=== PATIENT | female | born 1950 | race Caucasian/White ===

== ENCOUNTER → 2016-05-16 10:43 | Outpatient (CLI) | payer MEDICARE, OTHER ==
[2015-06-02 06:26] VITALS: BMI 29.1
[~2016-05-16 10:43] MED LIST: BACTROBAN CREAM15 GM TOPICAL; BUMEX2 MG PO; BUTALB-APAP-CA1 EACH PO; COZAAR50 MG PO; CYMBALTA30 MG PO; GABAPENTIN100 MG PO; K-DUR20 MEQ PO; LIPITOR20 MG PO; LOPRESSOR25 MG PO; NASONEX NASAL S17 GM NS; NEXIUM40 MG PO; PRILOSEC20 MG PO; SYNTHROID125 MCG PO; ZANAFLEX4 MG PO; [UNRECOGNIZED DRUG - OTHER] VG
== END | disposition home or self-care (01) ==
LOC: D.CT 10:43
DX: D12.0 Benign neoplasm of cecum (principal); K57.90 Diverticulosis of intestine, part unspecified, without perforation or abscess without bleeding

== ENCOUNTER 2017-07-04 00:06 | Observation (INO) | payer MEDICARE, OTHER ==
[~2017-07-04] VITALS: Ht 167.6 cm; Wt 86.2 kg
--- NOTE | ~2017-07-04 | EC ---
PATIENT:ANABELL DAMON DATE OF SERVICE: 07/04/17 SEX: F MEDICAL RECORD: [id number] DATE OF : 48 [facility] AGE OF PATIENT: 67 ADMISSION DATE: 07/04/17 REFERRING PHYSICIAN: INTERPRETING PHYSICIAN: JENNA HILL MD ECHOCARDIOGRAM REPORT ECHO CHARGES 4 ECHO COMPLETE CLINICAL DIAGNOSIS: SYNCOPE ECHOCARDIOGRAPHIC MEASUREMENTS (adult normal given) AC root (d.<3.7cm) 2.8 cm LV Septum d (<1.2 cm> 1.6 cm Valve Excursion 1.3 cm LV Septum (systole) 2.2 cm Left Atria (s.<4.0cm> 3.4 cm LVPW d(<1.2cm) 1.4 cm RV (d.<2.3cm) 2.2 cm LVPW (sytole) 2.3 cm LV diastole(<5.6CM) 4.4 cm MV E-F(>70mm/sec) cm LV systole 2.0 cm LVOT Diameter 1.4 cm MV exc.(>10mm) cm Est.ejection fraction (50-75%) % Pericardial Effusion N DOPPLER: LVIT cm/sec A 156 cm/sec E 115 cm/sec LA cm/sec RVSP 48.4 mmHg LVOT 138 cm/sec AOP1/2T m/s Asc. 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 Hill TAPE# PACS DATE OF SERVICE: 07/04/2017 PROCEDURE: Transthoracic echocardiogram. FINDINGS: 1. The left ventricle is shown to have mmkc-np-varffsnt left ventricular hypertrophy, ejection fraction is hyperdynamic. The ejection fraction is in the 70-75% range. 2. The right ventricle is mildly dilated with right ventricular hypertrophy with normal function. ECHOCARDIOGRAM REPORT [id number] ANABELL DAMON 3. The aortic valve is normal. 4. The mitral valve is normal. 5. The tricuspid valve is normal with an RVSP of 48 mmHg. 6. The pericardium is normal. 7. The right-sided structures are normal. CONCLUSIONS: The patient has evidence of mild hypertensive heart disease, also has evidence of yunj-ny-gknqvctt pulmonary hypertension with dilatation of the right-sided structures. TRANSINT:[id number] Voice Confirmation ID: [id number] DOCUMENT ID: [id number] 07/10/2017 Edited to correct date of service, dmm. JENNA HILL MD at 1001 CC: [id number] DICTATION DATE: 07/05/17 0751 CONTACT LENS BLOCKER AND CUTTER: 07/05/17 1004 DIS IN 07/05/17 [place] [id number] [place] [id number]
--- NOTE | ~2017-07-04 | HEMODYNAMI ---
PATIENT:ANABELL DAMON MEDICAL RECORD: [id number] : 48 LOCATION:[facility]13 ADMISSION DATE: 07/04/17 Generatedon:07/05/20178:30 Patient name: ANABELL DAMON Patient #: [id number] SSN: : 1950 Date of study: 07/05/2017 Page: Of Hemodynamic Procedure Report Patient Data Patient Demographics Procedure consent was obtained First Name: ANABELL Gender: Female Last Name: NELSON : 1950 Patient #: [id number] Age: 67 year(s) Race: Unknown Additional ID: [id number] Contact details [address]: [address] [place] [address] State: [place] City: [place] Zip code: [address] Past Medical History Allergies Allergen Reaction Date Comments Reported Other allergy 07/05/2017 [facility] Admission Admission Data Admission Date: 07/04/2017 Admission Time: 2:43 Room #: .2213 Procedure Procedure Types Cath Procedure Diagnostic Procedure C LH w/Coronaries Peripheral Cath Diagnostic Procedure Cath Peripheral Four Vessel Arteriogram Procedure Description Procedure Date Procedure Date: 07/05/2017 Procedure Start Time: 8:01 Procedure End Time: 8:30 Procedure Staff Name Function Fabio Markham MD Performing Physician Zakiya Cutler RT Monitor Jamel Hager RN Nurse Mecca Argueta RT Scrub Procedure Data Cath Procedure Fluoroscopy Diagnostic fluoroscopy Total fluoroscopy Time: 5.8 time: 5.8 min min Diagnostic fluoroscopy Total fluoroscopy dose: 522 dose: 522 mGy mGy Contrast Material Contrast Material Type Amount (ml) Isovue 300 108 Entry Location Entry Primary Successful Side Size Upsize Upsize Entry Closure Succes sful Closure Location (Fr) 1 (Fr) 2 (Fr) Remarks Device Remarks Femoral Right 5 Fr Exoseal artery Estimated blood loss: 5 ml Diagnostic catheters Device Type Used For End Catheter Placement MULTIPACK JL 4.0 5Fr Left Coronary catheter Angiography MULTIPACK 3DRC 5Fr Right Coronary catheter Angiography MULTIPACK Pigtail 5 Fr LV Angiography catheter DIAGNOSTIC IM 5Fr Cervical carotid catheter ([id number]) (common) arteriography DIAGNOSTIC JB3 4Fr Cervical carotid catheter (586131) (common) arteriography Procedure Complications No complications Procedure Medications Medication Administration Route Dosage 0.9% NaCl I.V. 100 ml/hr Oxygen NC 2 l/min Heparin Flush Bag added to field 2 bags (1000units/500ml NS) Lidocaine 2% added to field 20 Versed I.V. 1 mg Fentanyl I.V. 50 mcg Versed I.V. 0.5 mg Hemodynamics Rest Heart Rate: 70 (bpm) Pressure Samples Time Site Value (mmHg) Purpose Heart Use Rate(bpm) 8:15 LV 139/0,17 EDP 60 8:16 AO 141/59(88) Pullback 70 8:16 LV 144/2,18 Pullback 70 Gradients Valve Time Site 1 Site 2 Mean SEP/DFP Peak To Heart Use (mmHg) (sec/min) Peak Rate (mmHg) (bpm) Aortic 8:16 LV AO 12 15 3 70 144/2,18 141/59(88) Calculations Valve P-P Mean Valve Index Valve Source Name Gradient Area Flow (cm2) Aortic 3 12 3 12 Snapshots Pre Cath Intra NCS Post Cath Vital Signs Time Heart Resp SPO2 etCO2 NIBP (mmHg) Rhythm Pain Sedation Rate (ipm) (%) (mmHg) Status Level (bpm) 7:49:45 71 19 95 0 169/72(130) NSR 0 (11) 10(A) , No pain 7:54:30 67 16 98 27.9 145/57(96) NSR 0 (11) 10(A) , No pain 7:59:14 65 15 97 41.5 141/60(108) NSR 0 (11) 10(A) , No pain 8:03:55 67 15 95 0 121/70(89) NSR 0 (11) 10(A) , No pain 8:08:37 66 14 97 18.8 123/59(84) NSR 0 (11) 9(A) , No pain 8:13:20 70 13 97 0 136/67(102) NSR 0 (11) 9(A) , No pain 8:18:05 69 13 97 10.5 131/61(100) NSR 0 (11) 9(A) , No pain 8:22:48 69 14 97 9.8 124/58(89) NSR 0 (11) 10(A) , No pain 8:27:30 69 14 96 22.6 131/62(91) NSR 0 (11) 10(A) , No pain Medications Time Medication Route Dose Verified Delivered Reason Notes Effec tiveness by by 7:54:35 0.9% NaCl I.V. 100 Jamel Jamel Per ml/hr Madan Hager physician RN RN 7:54:49 Oxygen NC 2 Jamel Jamel Per l/min Lorigan Lorigan physician RN RN 7:55:19 Heparin Flush added 2 Jamel Jamel used for Bag to bags Lorigan Lorigan procedure (1000units/500ml field RN RN NS) 7:55:36 Lidocaine 2% added 20ml Jamel Jamel for local to vial Lorigan Lorigan anesthetic field RN RN 7:56:11 Versed I.V. 1 mg Jamel Jamel for Lorigan Lorigan sedation RN RN 7:56:24 Fentanyl I.V. 50 Jamel Jamel for mcg Lorigan Lorigan sedation RN RN 8:03:09 Versed I.V. 0.5 Jamel Jamel for mg Lorigan Lorigan sedation RN grades 7 8 tutor Log Time Note 7:27:47 Zakiya Counts RT(R) sent for patient. Start room use. 7:27:47 Time tracking: Regular hours 7:27:51 Plan of Care:Hemodynamics will remain stable., Cardiac rhythm will remain stable., Comfort level will be maintained., Respiratory function will remain adequate., Patient/ family verbilizes understanding of procedure., Procedure tolerated without complication., Recovers from procedure without complications.. 7:48:32 Patient received from Med/Surg to CCL 1 Alert and oriented. Tansferred to table in Supine position. 7:48:33 Warm blankets applied, and farshad hugger turned on for patient comfort. 7:48:34 Correct patient and procedure confirmed by team. 7:48:35 Signed procedure consent form obtained from patient. 7:48:36 ECG and BP/O2 sat monitors applied to patient. 7:48:37 Full Disclosure recording started 7:48:44 Vital chart was started 7:48:48 Rhythm: sinus rhythm 7:49:02 H&P Date Dictated: 07/04/2017 Within 30 days and on chart.. 7:49:03 Pre-procedure instructions explained to patient. 7:49:04 Pre-op teaching completed and patient verbalized understanding. 7:49:05 Family in waiting room. 7:49:07 Patient NPO since Midnight. 7:53:03 Baseline sample Acquired. 7:53:21 Patient allergic to Other allergyarithromycin 7:53:24 Is the patient allergic to Iodine/contrast media? No. 7:53:27 Is patient on blood thinner?No 7:53:28 Patient diabetic? Yes. 7:53:29 If diabetic: On Metformin? No 7:53:40 Previous problem with sedation/anesthesia? No ? 7:53:41 Snore? Yes 7:53:42 Sleep apnea? No 7:53:43 Deviated septum? No 7:53:43 Opens mouth fully? Yes 7:53:44 Sticks out tongue? Yes 7:53:52 Airway obstruction? Yes Reactive Airway 7:53:54 Dentures? No ? 7:53:57 Pre procedure: right dorsailis pedis pulse 2+ Normal; easily identifiable; not easily obliterated 7:53:59 Modified Sabino's test Ulnar > 7 seconds. 7:54:11 FAILED SABINO'S 7:54:14 Patient pain scale 0/10 ?. 7:54:21 IV patent on arrival in left forearm with 0.9% NaCl at [facility]. 7:54:25 Lab results completed and on chart. 7:54:28 Right groin area was prepped with chlora-prep and draped in sterile fashion 7:54:29 Alarms reviewed by R. N. 7:54:30 Sharps counted by scrub and verified by R.N. 7:54:35 0.9% NaCl 100 ml/hr I.V. was administered by Jamel Hager RN; Per physician; 7:54:38 Use device set Femoral Dx 7:54:39 ACIST Syringe (60074) opened to sterile field. 7:54:39 Bag Decanter (2002S) opened to sterile field. 7:54:40 Medline Cath Pack ([id number]) opened to sterile field. 7:54:40 SHEATH 5FR [place] (VOG846) opened to sterile field. 7:54:41 DIAGNOSTIC WIRE .035 260cm J wire (537441) opened to sterile field. 7:54:42 ACIST Hand Control (21635) opened to sterile field. 7:54:43 ACIST Manifold (15134) opened to sterile field. 7:54:43 DIAGNOSTIC Multipack 5Fr catheter set (MC0255) opened to sterile field. 7:54:44 Tegaderm 4 x 4 (1626W) opened to sterile field. 7:54:45 PERCUTANEOUS ENTRY 19GA needle opened to sterile field. 7:54:49 Oxygen 2 l/min NC was administered by Jamel Hager RN; Per physician; 7:55:19 Heparin Flush Bag (1000units/500ml NS) 2 bags added to field was administered by Jamle Hager RN; used for procedure; 7:55:27 Final Timeout: patient, procedure, and site verified with staff and physician. All members of the team are in agreement. 7:55:29 Right groin site verified by team. 7:55:33 Physical assessment completed. ASA score P 2 - A patient with mild systemic disease as per Fabio Markham MD. 7:55:36 Lidocaine 2% 20ml vial added to field was administered by Jamel Hager RN; for local anesthetic; 7:55:37 Sedation plan: IV Moderate Sedation Medication:Versed, Fentanyl 7:56:11 Versed 1 mg I.V. was administered by Jamel Hager RN; for sedation; 7:56:24 Fentanyl 50 mcg I.V. was administered by Jamel aHger RN; for sedation; 7:58:41 Zero performed for pressure channel P1 8:00:36 Procedure started. 8:01:05 Local anesthetic to right femoral artery with Lidocaine 2% by Fabio Markham MD.INITIAL ACCESS ONLY 8:03:09 Versed 0.5 mg I.V. was administered by Jamel Hager RN; for sedation; 8:08:49 A 5 Fr sheath was inserted into the Right Femoral artery 8:08:57 A MULTIPACK JL 4.0 5Fr catheter was advanced over the wire and used for Left Coronary Angiography. 8:09:17 Procedure type changed to Cath procedure, Diagnostic procedure, LHC, LHC w/Coronaries, Peripheral Cath Diagnostic Procedure, Cath Peripheral, Four Vessel Arteriogram 8:11:21 Catheter removed. 8:12:32 A MULTIPACK 3DRC 5Fr catheter was advanced over the wire and used for Right Coronary Angiography. 8:13:50 Catheter removed. 8:14:23 A MULTIPACK Pigtail 5 Fr catheter was advanced over the wire and used for LV Angiography. 8:15:41 LV gram done using ANGLIN 8:15:42 LV hemodynamics recorded. 8:15:45 Injector settings: Ml/sec: 10, Volume: 20, 8:15:49 EF : 60 % 8:16:10 Catheter removed. 8:16:46 A DIAGNOSTIC IM 5Fr catheter ([id number]) was advanced over the wire and used for Cervical carotid (common) arteriography.RIGHT 8:21:56 Catheter removed. 8:22:13 A DIAGNOSTIC JB3 4Fr catheter ([id number]) was advanced over the wire and used for Cervical carotid (common) arteriography.LEFT 8:24:25 Catheter removed. 8:24:29 EXOSEAL 5Fr (EX500) opened to sterile field. 8:25:06 Sheath removed intact; hemostasis achieved with Exoseal to the Right Femoral artery. 8:25:09 Procedure ended.(Physican Out) 8:25:18 Fluoroscopy time 05.80 minutes. 8:25:21 Fluoroscopy dose: 522 mGy 8:25:21 Flurop Dose total: 522 8:25:36 Contrast amount:Isovue 300 108ml. 8:25:41 Sharps counted by scrub and verified by R.N. 8:25:42 Insertion/operative site no bleeding no hematoma. 8:25:45 Post-op/insertion site Right Femoral artery dressed using a 4 x 4 and Tegaderm. 8:25:56 Post right femoral artery:stable, clean and dry 8:25:58 Post Procedure Pulses reassessed and unchanged 8:26:07 Post-procedure physical assessment completed. ASA score P 2 - A patient with mild systemic disease as per Fabio Markham MD. 8:26:09 Post procedure rhythm: unchanged. 8:26:12 Estimated blood loss: 5 ml 8:26:13 Post procedure instruction explained to patient.Patient verbalizes understanding. 8:26:14 Patient needs reinforcement of post procedure teaching. 8:26:19 Procedure Complication : No complications 8:26:21 See physician's report for complete and final results. 8:29:26 Procedure and supply charges have been captured, reviewed, submitted and are correct. 8:30:21 Vital chart was stopped 8:30:23 Report given to Pre/Post Procedure Room. 8:30:25 Patient transfered to Pre/Post Procedure Room with Stretcher. 8:30:36 Procedure ended. 8:30:36 Full Disclosure recording stopped 8:30:39 End room use (Document Last) Device Usage Item Name Manufacture Quantity Catalog Hospital Part Current Minimal Lot# / Number Charge Number Stock Stock Serial# Code ACIST Acist 1 47596 973439 989881 498803 20 Syringe Medical (94407) Systems Inc Bag Decanter Microtek 1 2001S 081136 51272 910793 5 (2001S) Medical Inc. Medline Cath Cardinal 1 [id number] 037871 14199 952772 5 Pack Health ([id number]) SHEATH 5FR Terumo 1 BWC981 269510 311801 563995 40 [place] (WCU480) DIAGNOSTIC [facility] [place] 1 659063 964456 360935 636150 30 WIRE .035 260cm J wire (805401) ACIST Hand Acist 1 69138 892850 074292 224272 5 Control Medical (48285) Systems Inc ACIST Acist 1 96688 941783 522638 688608 5 Manifold Medical (63118) Systems Inc DIAGNOSTIC Cardinal 1 YL8613 093443 02331 064717 30 Multipack Health 5Fr catheter set (EC2763) Tegaderm 4 x 3M 1 1626W 774830 254372 654803 5 4 (1626W) PERCUTANEOUS [facility] 1 H77130 092101 570167 5 ENTRY 19GA needle MULTIPACK JL Cardinal 1 208871 5 4.0 5Fr Health catheter MULTIPACK Cardinal 1 284106 5 3DRC 5Fr Health catheter MULTIPACK Cardinal 1 860650 5 Pigtail 5 Fr Health catheter DIAGNOSTIC Cardinal 1 [id number] 239557 903934 324653 5 IM 5Fr Health catheter (982278N) DIAGNOSTIC Cardinal 1 532438 202565 866724 960233 5 JB3 4Fr Health catheter (868669) EXOSEAL 5Fr Cardinal 1 EX500 605043 095018 057767 10 (EX500) Health Signature Audit [place] Stage Time Signature Unsigned Intra-Procedure 07/05/2017 Zakiya 8:30:52 AM Counts RT(R) Signatures Monitor : Zakiya Signature : Counts RT Date : Time : [address] [place] [address]
[2017-07-04 01:15] LABS: BASOPHILS 0.7 % (0-2); EOSINOPHILS 2.9 % (0-7); HEMATOCRIT 38.4 % (36.0-48.0); HEMOGLOBIN 12.7 g/dL (12-16); IMMATURE GRANULOCYTES 0.2 % (0-5); LYMPHOCYTES 34.2 % (15-50); MCHC 33.1 g/dL (31.0-37.0); MCV 96.7 fL (80.0-100.0); MEAN PLATELET VOLUME 10.2 fL (7.4-10.4); MONOCYTES 7.2 % (2-11); NEUTROPHILS 54.8 % (40-80); PLATELET COUNT 290 10x3/uL (130-400); RBC 3.97 10x6/uL (4.00-5.40); RDW 14.9 % (11.5-14.5)
[2017-07-04 01:24] LABS: ALBUMIN 3.7 g/dL (3.4-5.0); ALKALINE PHOSPHATASE 130 U/L (46-116); ALT (SGPT) 44 U/L (10-68); BILIRUBIN - TOTAL 0.36 mg/dL (0.2-1.3); CALC OSMOLALITY 284 mosm/kg (275-300); CALCIUM 9.3 mg/dL (8.5-10.1); CARBON DIOXIDE 29.4 mmol/L (21.0-32.0); CHLORIDE - SERUM 102 mmol/L (98-107); GLUCOSE 133 mg/dL (74-106); POTASSIUM - SERUM 3.5 mmol/L (3.5-5.1); PROTEIN - SERUM 7.4 g/dL (6.4-8.2); SODIUM 141 mmol/L (136-145); UREA NITROGEN 19 mg/dL (7-18); eGFR NON AFRICAN AMERICAN 58 mL/min (90-120)
[2017-07-04 01:34] LABS: CKMB 1.4 U/L (0.0-3.6); CREATINE KINASE 172 UL (21-215); THYROID STIMULATING HORMONE 4.09 uIU/mL (0.36-3.74)
[2017-07-04 01:35] LABS: TROPONIN-I < 0.017 ng/mL (0.000-0.060)
[2017-07-04 08:10] LABS: TROPONIN-I < 0.017 ng/mL (0.000-0.060)
[2017-07-04 08:11] LABS: CREATINE KINASE 254 UL (21-215)
[2017-07-04 08:12] LABS: CKMB 2.1 U/L (0.0-3.6)
[2017-07-04 13:41] VITALS: Ht 167.6 cm; Wt 86.2 kg
[2017-07-04 14:12] LABS: CKMB 1.6 U/L (0.0-3.6); CREATINE KINASE 270 UL (21-215); TROPONIN-I < 0.017 ng/mL (0.000-0.060)
[2017-07-04 19:40] LABS: CKMB 1.3 U/L (0.0-3.6); CREATINE KINASE 248 UL (21-215)
[2017-07-04 19:42] LABS: TROPONIN-I < 0.017 ng/mL (0.000-0.060)
[2017-07-04 22:09] VITALS: BP 137/34
[2017-07-05 01:29] VITALS: BP 136/48
[2017-07-05 04:33] VITALS: BP 146/56
[2017-07-05 07:57] VITALS: BP 131/46
== END 2017-07-05 11:01 | disposition home or self-care (01) ==
LOC: D.ER 00:06 → D.MS 02:43 → OBSVTIME 02:43 → D.EDHOLD 02:43 → D.MS 16:30 → D.CLR 07-05 08:00
PROVIDERS: Family Medicine
DX: I25.10 Atherosclerotic heart disease of native coronary artery without angina pectoris (principal); R55 Syncope and collapse; E11.65 Type 2 diabetes mellitus with hyperglycemia; I10 Essential (primary) hypertension; E03.9 Hypothyroidism, unspecified; H81.09 Meniere's disease, unspecified ear; I65.23 Occlusion and stenosis of bilateral carotid arteries

== ENCOUNTER 2018-02-19 15:46 | Emergency (ER) | payer MEDICARE, OTHER ==
[~2018-02-19] VITALS: Ht 167.6 cm; Wt 81.8 kg
[2018-02-19 15:48] VITALS: Ht 167.6 cm; Wt 81.8 kg
[2018-02-19 18:04] LABS: BASOPHILS 0.5 % (0-2); EOSINOPHILS 1.7 % (0-7); HEMATOCRIT 39.4 % (36.0-48.0); HEMOGLOBIN 13.2 g/dL (12-16); IMMATURE GRANULOCYTES 0.3 % (0-5); LYMPHOCYTES 30.1 % (15-50); MCHC 33.5 g/dL (31.0-37.0); MCV 95.6 fL (80.0-100.0); MEAN PLATELET VOLUME 10.5 fL (7.4-10.4); MONOCYTES 6.3 % (2-11); NEUTROPHILS 61.1 % (40-80); PLATELET COUNT 343 10x3/uL (130-400); RBC 4.12 10x6/uL (4.00-5.40); RDW 14.6 % (11.5-14.5); WBC 9.3 10x3/uL (4.8-10.8)
[2018-02-19 18:36] LABS: ALBUMIN 3.7 g/dL (3.4-5.0); ALKALINE PHOSPHATASE 138 U/L (46-116); ALT (SGPT) 52 U/L (10-68); BILIRUBIN - TOTAL 0.31 mg/dL (0.2-1.3); CALC OSMOLALITY 285 mosm/kg (275-300); CALCIUM 9.6 mg/dL (8.5-10.1); CARBON DIOXIDE 31.5 mmol/L (21.0-32.0); CHLORIDE - SERUM 100 mmol/L (98-107); CREATININE - SERUM 0.9 mg/dL (0.6-1.3); GLUCOSE 134 mg/dL (74-106); POTASSIUM - SERUM 3.3 mmol/L (3.5-5.1); PROTEIN - SERUM 7.7 g/dL (6.4-8.2); SODIUM 141 mmol/L (136-145); UREA NITROGEN 20 mg/dL (7-18); eGFR NON AFRICAN AMERICAN 66 mL/min (90-120)
[2018-02-19 18:38] LABS: APPEARANCE CLEAR (CLEAR); COLOR YELLOW (YELLOW)
[2018-02-19 18:39] LABS: BILIRUBIN NEGATIVE (NEGATIVE); GLUCOSE NEGATIVE (NEGATIVE); KETONE NEGATIVE (NEGATIVE); NITRITE NEGATIVE (NEGATIVE); PROTEIN NEGATIVE (NEGATIVE); SPECIFIC GRAVITY 1.015 (1.005-1.020); UROBILINOGEN NORMAL (NORMAL)
[2018-02-19 18:44] LABS: C-REACTIVE PROTEIN 1.1 mg/dL (0.0-0.9); CKMB 1.3 U/L (0.0-3.6); THYROID STIMULATING HORMONE 2.17 uIU/mL (0.36-3.74)
[2018-02-19 18:46] LABS: UDS - AMPHET NEGATIVE QUAL (NEGATIVE); UDS - BARB NEGATIVE QUAL (NEGATIVE); UDS - BENZO NEGATIVE QUAL (NEGATIVE); UDS - COCAINE NEGATIVE QUAL (NEGATIVE); UDS - OPIATE NEGATIVE QUAL (NEGATIVE); UDS - PCP NEGATIVE QUAL (NEGATIVE); UDS - THC NEGATIVE QUAL (NEGATIVE)
[2018-02-19 18:50] LABS: TROPONIN-I < 0.017 ng/mL (0.000-0.060)
[2018-02-19 21:47] VITALS: BP 164/64
== END 2018-02-19 21:48 | disposition home or self-care (01) ==
LOC: D.ER 15:46
PROVIDERS: Emergency Medicine
DX: R55 Syncope and collapse (principal); S00.83XA Contusion of other part of head, initial encounter; W17.89XA Other fall from one level to another, initial encounter; Y93.89 Activity, other specified; Y92.89 Other specified places as the place of occurrence of the external cause; E11.9 Type 2 diabetes mellitus without complications; I10 Essential (primary) hypertension; Z85.038 Personal history of other malignant neoplasm of large intestine; Z85.048 Personal history of other malignant neoplasm of rectum, rectosigmoid junction, and anus; Z85.89 Personal history of malignant neoplasm of other organs and systems

== ENCOUNTER 2019-03-30 02:34 | Emergency (ER) | payer MEDICARE, BC ==
[~2019-03-30] VITALS: Ht 167.6 cm; Wt 84.8 kg
[2019-03-30 02:35] VITALS: Ht 167.6 cm; Wt 84.8 kg
[2019-03-30] MEDS ORDERED: VALIUM5 MG PO (02:40)
[2019-03-30] MEDS ORDERED: METOPROLOL TART50 MG PO (02:41)
[2019-03-30 04:22] LABS: BASOPHILS 0.2 % (0-2); EOSINOPHILS 0 % (0-7); HEMATOCRIT 42.3 % (36.0-48.0); HEMOGLOBIN 13.6 g/dL (12-16); IMMATURE GRANULOCYTES 0.2 % (0-5); LYMPHOCYTES 13.3 % (15-50); MCH 30.2 pg (26.0-34.0); MCHC 32.2 g/dL (31.0-37.0); MCV 93.8 fL (80.0-100.0); MEAN PLATELET VOLUME 10.9 fL (7.4-10.4); MONOCYTES 5.5 % (2-11); NEUTROPHILS 80.8 % (40-80); PLATELET COUNT 296 10x3/uL (130-400); RBC 4.51 10x6/uL (4.00-5.40); RDW 15.1 % (11.5-14.5)
[2019-03-30 04:32] LABS: CALC OSMOLALITY 286 mosm/kg (275-300); CALCIUM 9.5 mg/dL (8.5-10.1); CARBON DIOXIDE 29.5 mmol/L (21.0-32.0); CHLORIDE - SERUM 104 mmol/L (98-107); CREATININE - SERUM 0.8 mg/dL (0.6-1.3); GLUCOSE 162 mg/dL (74-106); POTASSIUM - SERUM 3.7 mmol/L (3.5-5.1); SODIUM 141 mmol/L (136-145); UREA NITROGEN 18 mg/dL (7-18); eGFR NON AFRICAN AMERICAN 75 mL/min (90-120)
[2019-03-30 04:40] LABS: ALBUMIN 3.8 g/dL (3.4-5.0); ALKALINE PHOSPHATASE 151 U/L (46-116); ALT (SGPT) 38 U/L (10-68); AMYLASE - SERUM 47 U/L (25-115); BILIRUBIN - TOTAL 0.44 mg/dL (0.2-1.3); LIPASE 154 U/L (73-393); PROTEIN - SERUM 7.7 g/dL (6.4-8.2)
[2019-03-30 04:49] LABS: TROPONIN-I < 0.017 ng/mL (0.000-0.060)
[2019-03-30] MEDS ORDERED: ZOFRAN ODT4 MG/UDTAB PO (05:05)
[2019-03-30] MEDS ORDERED: LOMOTIL 2.5-0.1 EAC1 PO (05:05)
[2019-03-30 06:15] VITALS: BP 164/89
== END 2019-03-30 06:15 | disposition home or self-care (01) ==
LOC: D.ER 02:34
PROVIDERS: Emergency Medicine
DX: R11.10 Vomiting, unspecified (principal); R10.9 Unspecified abdominal pain; R19.7 Diarrhea, unspecified; E11.40 Type 2 diabetes mellitus with diabetic neuropathy, unspecified; E07.9 Disorder of thyroid, unspecified; I10 Essential (primary) hypertension; J45.909 Unspecified asthma, uncomplicated